=== PATIENT | female | born 2000 | race Caucasian/White ===

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

== ENCOUNTER 2023-12-10 21:52 | Emergency (ER) | payer OTHER ==
[2023-12-10 22:03] VITALS: BP 107/64; PULSE 78; RESP 16; TEMP 98.8; BMI 27.8
[2023-12-10] MEDS ORDERED: IBUPROFEN 400 MG TABLET (FP) PO ONE (22:12)
[2023-12-10] MEDS ORDERED: ACETAMINOPHEN 325 MG TABLET (FP) ONE (22:13)
[2023-12-10] MEDS: ACETAMINOPHEN 325 MG TABLET (FP) PO ONE (22:15)
[2023-12-10] MEDS: IBUPROFEN 400 MG TABLET (FP) PO ONE (22:15)
== END 2023-12-10 22:17 | disposition home or self-care (01) ==
LOC: FER 21:52
DX: R51.9 Headache, unspecified (principal); M54.2 Cervicalgia; V49.49XA Driver injured in collision with other motor vehicles in traffic accident, initial encounter; Y92.410 Unspecified street and highway as the place of occurrence of the external cause
CPT/HCPCS: 99283-25

== ENCOUNTER 2024-07-18 20:16 | Emergency (ER) | payer OTHER ==
[2024-07-18 20:31] VITALS: BP 133/82; PULSE 66; RESP 16; TEMP 98.1; BMI 28.7
[2024-07-18] MEDS ORDERED: ACETAMINOPHEN 500 MG TABLET (FP) ONE (21:26)
[2024-07-18] MEDS: ACETAMINOPHEN 500 MG TABLET (FP) PO ONE (21:26)
== END 2024-07-18 21:29 | disposition home or self-care (01) ==
LOC: FER 20:16
DX: S16.1XXA Strain of muscle, fascia and tendon at neck level, initial encounter (principal); R11.0 Nausea; R51.9 Headache, unspecified; R42 Dizziness and giddiness; W50.1XXA Accidental kick by another person, initial encounter
CPT/HCPCS: 72050-TC-FY; 99283-25